=== PATIENT | female | born 2000 | race Caucasian/White ===

== ENCOUNTER 2023-06-26 09:12 | Outpatient (AMB) | payer OTHER, SELFPAY ==
[2023-06-26 09:17] VITALS: BP 120/72; PULSE 96; TEMP 36.9; O2SAT 98
--- NOTE | 2023-06-26 09:17 | MHC.OFFWIV ---
Intake Vital Signs 06/26/23 09:17 Height 5 ft 9 in Weight 135 lb 4 oz BMI 20.0 BP 120/72 Blood Pressure Location Lt brachial Position Sitting Pulse 96 Pulse Source Pulse Oximeter Temp 98.4 F Temp Source Temporal Artery Scan Pulse Oximetry (%) 98 Intake Visit Reasons: EST/stitch removal left forearm (lobby) AM Intake Note: pt is here today for stitch removal lft forearm Patient Tobacco Use Status: Current everyday Tobacco user Is last menstrual period known: Yes Patient : No Allergies No Known Allergies [No Known Allergies*] Allergy (Verified 06/26/23 09:23) Do you need a note to return to daycare/school/sports/work: No HPI HPI Comments History of Present Illness Details This is a 22-year-old female who presented to the walk-in clinic today for suture removal. Patient states she had 11 sutures placed to her left forearm about 10 days ago. She denies any surrounding erythema or fever/chills. She is otherwise feeling well. [facility] Medical History (Updated 08/18/21 @ 17:15 by Emmy Marin MD) Herpes Scoliosis Asthma Social History Patient Tobacco Use Status: Current everyday Tobacco user Review of Systems Const All systems reviewed & are unremarkable except as noted in HPI and below Reports no additional complaints Eyes Reports no additional complaints ENT Reports no additional complaints Card Reports no additional complaints Resp Reports no additional complaints GI Reports no additional complaints Reports no additional complaints Musc Reports no additional complaints Skin/Breast Reports system reviewed and no additional complaints, except as documented Neuro Reports no additional complaints Psych Reports no additional complaints Endo Reports no additional complaints Tristian/Lymph Reports no additional complaints Aller/Immun Reports no additional complaints Physical Exam Vital Signs: Last Vital Signs Temp 98.4 F 06/26/23 09:17 Pulse 96 06/26/23 09:17 BP 120/72 06/26/23 09:17 Pulse Ox 98 06/26/23 09:17 BMI result Body Mass Index 20.0 Const Other: Vital signs reviewed. Constitutional: Non-toxic appearing. No acute distress. Well-developed and well-nourished. HEENT: Normocephalic and atraumatic. Skin: There is a well-healed laceration to her left forearm with [address] No surrounding erythema or purulent drainage. Neck: Full and painless range of motion. No cervical lymphadenopathy. Cardio: Regular rate. Pulmonary: No respiratory distress. No accessory muscle usage. Gastrointestinal: Soft, nontender, and nondistended in all 4 quadrants. Musculoskeletal: Normal range of motion in joints throughout the body. No deformity or other signs of injury. Neuro: Alert and oriented x4. Cranial nerves 2-12 grossly intact. No focal deficits appreciated. Psych: Normal mood and affect. Assessment & Plan Assessment & Plan (1) Visit for suture removal: Code(s): Z48.02 - Encounter for removal of sutures Plan: This is a 22-year-old female who presented to the office requesting suture removal. The patient had 11 sutures placed to her left forearm about 10 days ago. Her sutures were removed at the bedside without difficulty and all 11 sutures were removed in their entirety. The patient tolerated the procedure well. The patient was instructed to continue using bacitracin cream to the area. She was also instructed to clean the area with soap and water daily. Patient was advised to follow-up here or proceed to the emergency room if she were to develop purulent drainage, erythema, or fever/chills. Patient verbalized understanding and is agreeable with the plan. Coding Level of Care Code Est Pt Level 3 (37251) Diagnoses Visit for suture removal Z48.02
== END 2023-06-26 09:54 | disposition home or self-care (01) ==
PROVIDERS: PCP Internal Medicine; Visit Provider Physician Assistant Medical
DX: Z48.02 Encounter for removal of sutures (principal)
CPT/HCPCS: 15853; 99213